=== PATIENT | male | born 1985 | race Caucasian/White ===

== ENCOUNTER 2017-09-28 14:10 | Emergency (ER) | payer SELFPAY ==
[~2017-09-28] VITALS: Ht 170.2 cm; Wt 75.0 kg
[2017-09-28] MEDS ORDERED: ONDANSETRON HCL 4MG/2ML VIAL IV STA (14:28)
[2017-09-28] MEDS ORDERED: MORPHINE SULFATE 4 MG/ML CPJ (NOT FOR IM USE) IV STA (14:28)
[2017-09-28] MEDS ORDERED: LORAZEPAM 2MG/ML CPJ ONE (14:42)
[2017-09-28] MEDS ORDERED: LEVETIRACETAM 500MG PREMIX 100 ML IV ONE (14:45)
[2017-09-28] MEDS ORDERED: LORAZEPAM 2MG/ML CPJ IM PRN (14:45)
[2017-09-28] MEDS ORDERED: DIPHENHYDRAMINE 50MG CAPSULE PO ONE (15:00)
[2017-09-28 15:46] LABS: CHLORIDE 107 mEq/L (98-107)
[2017-09-28 15:50] LABS: INR 1.1; PROTHROMBIN TIME 11.2 sec (9.4-11.6)
[2017-09-28 15:52] LABS: ETHANOL BLOOD < 10 mg/dL
[2017-09-28 15:56] LABS: BASOPHILS % 0.7 % (0.0-2.0); EOSINOPHILS % 0.1 % (0.0-5.0); HEMATOCRIT. 37.6 % (42.0-52.0); HEMOGLOBIN. 12.7 g/dL (14.0-18.0); LYMPHOCYTES % 16.5 % (20.0-50.0); MEAN CORPUSCULAR HEMOGLOBIN 28.7 pg (28.0-32.0); MONOCYTES % 5.9 % (2.0-8.0); NEUTROPHILS % 76.8 % (40.0-76.0); PLATELET 200 x1000/uL (130-400); RED BLOOD CELL COUNT 4.43 mill/uL (4.7-6.1); RED CELL DISTRIBUTION WIDTH 13.7 % (11.6-14.6)
[2017-09-28 16:30] VITALS: BP 149/64
[2017-09-28] MEDS ORDERED: IBUPROFEN 400MG TABLET PO ONE (17:00)
== END 2017-09-28 17:34 | disposition left against medical advice (07) ==
LOC: ER 14:10 → CANBEDREQ 20:32
DX: R07.9 Chest pain, unspecified (principal); I10 Essential (primary) hypertension; I25.2 Old myocardial infarction; Z86.74 Personal history of sudden cardiac arrest; Z95.0 Presence of cardiac pacemaker
CPT/HCPCS: 36415; 71045; 80053; 84484; 85025; 85610; 93005; 96365; 96375; 99285; G0482; J1953; J2060; J2270; J2405; Z7610; Q0163

== ENCOUNTER 2017-09-28 17:57 | Emergency (ER) | payer SELFPAY ==
[~2017-09-28] VITALS: Ht 170.2 cm; Wt 75.0 kg
[2017-09-28] MEDS ORDERED: CLONIDINE 0.1MG TABLET PO PRN (22:30)
[2017-09-28] MEDS ORDERED: ONDANSETRON HCL 4MG/2ML VIAL IV PRN (22:30)
[2017-09-28] MEDS ORDERED: DOCUSATE SODIUM 100MG CAPSULE PO PRN (22:30)
[2017-09-28] MEDS ORDERED: MAGNESIUM/ALUMINUM HYDROXIDE/SIMETHICONE 30ML UDC PO PRN (22:30)
[2017-09-28] MEDS ORDERED: IPRATROPIUM/ALBUTEROL 0.5-3(2.5)MG/3ML NEB INH PRN (22:30)
[2017-09-28] MEDS ORDERED: NITROGLYCERIN 0.4MG TABLET SL SL PRN (22:30)
[2017-09-28] MEDS ORDERED: ACETAMINOPHEN 325MG TABLET PO PRN (22:30)
[2017-09-28] MEDS ORDERED: GUAIFENESIN 200MG/10ML SUGAR FREE UDC PO PRN (22:30)
[2017-09-28] MEDS ORDERED: NA PHOS,M-B/NA PHOS,DI-BA ENEMA 118ML PR PRN (22:30)
[2017-09-28] MEDS ORDERED: KETOROLAC 15MG/ML VIAL IV PRN (22:30)
[2017-09-28] MEDS ORDERED: ZOLPIDEM TARTRATE 5MG TABLET PO PRN (22:30)
[2017-09-28] MEDS ORDERED: LORAZEPAM 0.5MG TABLET PO PRN (22:30)
[2017-09-29] MEDS ORDERED: DIPHENHYDRAMINE 50MG/ML VIAL IV ONE (00:45)
[2017-09-29 00:56] VITALS: BP 123/71
[2017-09-29 01:00] LABS: BASOPHILS % 0.4 % (0.0-2.0); EOSINOPHILS % 0.1 % (0.0-5.0); HEMATOCRIT. 35.3 % (42.0-52.0); HEMOGLOBIN. 11.9 g/dL (14.0-18.0); LYMPHOCYTES % 21.2 % (20.0-50.0); MEAN CORPUSCULAR HEMOGLOBIN 28.7 pg (28.0-32.0); MEAN CORPUSCULAR VOLUME 85.3 fL (80.0-94.0); MEAN PLATELET VOLUME 8.8 fl (7.4-10.4); MONOCYTES % 7.1 % (2.0-8.0); NEUTROPHILS % 71.2 % (40.0-76.0); PLATELET 190 x1000/uL (130-400); RED BLOOD CELL COUNT 4.14 mill/uL (4.7-6.1); RED CELL DISTRIBUTION WIDTH 13.4 % (11.6-14.6)
[2017-09-29 01:06] LABS: CHLORIDE 107 mEq/L (98-107)
[2017-09-29 01:13] LABS: LDL CHOLESTEROL 79 mg/dL (5-100)
[2017-09-29 01:14] LABS: HDL CHOLESTEROL 40 mg/dL (40-59)
[2017-09-29] MEDS ORDERED: METOPROLOL TARTRATE 25MG TABLET PO SCH (09:00)
[2017-09-29] MEDS ORDERED: ASPIRIN 325MG EC TABLET PO SCH (09:00)
[2017-09-29] MEDS ORDERED: FAMOTIDINE 20MG TABLET PO SCH (09:00)
== END 2017-09-29 02:00 | disposition left against medical advice (07) ==
LOC: ER 17:57 → CANRESERV 09-29 02:27 → ENRESERV 09-29 02:27 → CANBEDREQ 09-29 16:51
DX: R07.89 Other chest pain (principal); I11.9 Hypertensive heart disease without heart failure; R56.9 Unspecified convulsions; Z88.8 Allergy status to other drugs, medicaments and biological substances; Z95.0 Presence of cardiac pacemaker
CPT/HCPCS: 36415; 80053; 80061; 83036; 84484; 85025; 93005; 96374; 96375; 99285; J1200; J1885; X7700; Z7610

== ENCOUNTER 2017-09-30 17:03 | Emergency (ER) | payer SELFPAY ==
[~2017-09-30] VITALS: Ht 172.7 cm; Wt 70.0 kg
[2017-09-30 17:05] VITALS: BP 115/63
== END 2017-09-30 18:00 | disposition left against medical advice (07) ==
LOC: ER 17:48
DX: R56.9 Unspecified convulsions (principal); F17.200 Nicotine dependence, unspecified, uncomplicated; Z95.0 Presence of cardiac pacemaker; Z53.21 Procedure and treatment not carried out due to patient leaving prior to being seen by health care provider
CPT/HCPCS: 82962; 93005; Z7610